=== PATIENT | male | born 1970 ===

== ENCOUNTER 2024-07-23 13:10 | Emergency (ER) | payer MEDICAID, SELFPAY ==
--- NOTE | ~2024-07-23 | XR_ITS ---
EXAMINATION: XR CHEST CLINICAL INFORMATION: cough, wheeze COMPARISON: None available. TECHNIQUE: 2 views of the chest were obtained. FINDINGS: The cardiac, hilar, and mediastinal contours are normal. The lungs are mildly hyperaerated, however clear bilaterally. There is no pneumothorax or pleural effusion. There is no focal osseous or soft tissue abnormality. XR/XR chest 2V IMPRESSION: No active pulmonary disease. Electronically signed by: Ricky Diaz MD 07/23/2024 02:19 PM EDT
[2024-07-23 13:16] VITALS: BP 123/72; PULSE 98; O2SAT 98
[2024-07-23 13:21] VITALS: BP 140/80; PULSE 89; RESP 16; TEMP 36.8; O2SAT 97; BMI 27.3
--- NOTE | 2024-07-23 13:25 | ECG_ITS ---
Test Reason : WEAKNESS Blood Pressure : */* mmHG Vent. Rate : 80 BPM Atrial Rate : 80 BPM P-R Int : 126 ms QRS Dur : 88 ms QT Int : 408 ms P-R-T Axes : 50 -1 17 degrees QTcB Int : 470 ms Normal sinus rhythm Septal infarct , age undetermined Abnormal ECG No previous ECGs available Referred By: Santi Chahal Electronically Signed By: HALLIE MOHAN MD
--- NOTE | 2024-07-23 13:29 | ED.GENADULT ---
HPI - General Adult General Chief complaint: Syncope Stated complaint: 3x near syncope, 3rd day self alc detox Time Seen by Provider: 07/23/24 13:17 History of Present Illness ED Provider: Santi Chahal MD HPI narrative: 54-year-old male reports ?multiple passing out episodes ?.? Attempting to stop drinking and cutting back on cigarettes ?.Patient reports shortness of breath upon walking today. No chest pain No cough or fever. No abdominal pain denies any injuries Related Data Home Medications ?Medication ?Instructions ?Recorded ?Confirmed albuterol sulfate 2.5 mg/3 mL mg inhalation Q6H PRN wheezing 05/15/24 (0.083 %) solution for nebulization azelastine 137 mcg (0.1 %) nasal 1 spray intranasal BID PRN 05/15/24 spray allergies fluticasone 250 mcg-salmeterol 50 1 ea inhalation BID 05/15/24 mcg/dose blistr powdr for inhalation (Advair Diskus) lisinopril 10 mg tablet 10 mg PO DAILY 05/15/24 montelukast 10 mg tablet 10 mg PO QPM 05/15/24 omeprazole 20 mg capsule,delayed 20 mg PO DAILY 05/15/24 release rosuvastatin 20 mg tablet 20 mg PO DAILY 05/15/24 tiotropium bromide 2.5 2 puff inhalation DAILY 05/15/24 mcg/actuation mist for inhalation (Spiriva Respimat) Previous Rx's ?Medication ?Instructions ?Recorded albuterol sulfate 90 mcg/actuation 2 puff inhalation Q6H PRN 07/23/24 aerosol inhaler shortness of breath or wheezing #8.5 grams prednisone 20 mg tablet 60 mg (3 x 20 mg) PO DAILY 4 days 07/23/24 #12 tabs Allergies Allergy/AdvReac Type Severity Reaction Status Date / Time Opioids - Morphine Analogues AdvReac Intermediate Abdominal Verified 07/23/24 13:25 Pain metformin AdvReac Mild Rash Verified 07/23/24 13:25 PMFSH Past Medical History Medical History (Updated 07/24/24 @ 00:00 by Viola Jackson) Night terrors, adult Tobacco dependence Alcohol dependence Hyperlipidemia HTN (hypertension) COPD (chronic obstructive pulmonary disease) Type 2 diabetes mellitus Surgical History (Updated 05/15/24 @ 16:06 [facility] History of [facility] surgery Hernia Family History Family History (Updated 05/15/24 @ 16:03 by RAMON Steinberg) Maternal Grandfather Lung cancer Paternal Grandfather CHF (congestive heart failure) Social History Social History (Updated 05/15/24 @ 16:01 by RAMON Steinberg) Alcohol intake: current Alcohol intake frequency: 3 or more drinks per day Alcohol type: beer Comment: Heavy alcohol Patient Tobacco Use Status: Current everyday Tobacco user Physical Exam ED Vital Signs: Vital Signs - 24 hr 07/23/24 13:21 07/23/24 14:00 07/23/24 14:43 Temperature 98.3 F 98.4 F Pulse Rate 89 76 65 Respiratory Rate 16 26 H 18 Blood Pressure 140/80 H 139/79 Pulse Oximetry 97 95 Oxygen Delivery Method Room Air Room Air BMI result Body Mass Index 27.3 Const Other: EXAM: Gen: Alert, awake, well appearing, well hydrated. Head: Atraumatic Eyes: Anicteric, Normal conjunctiva. ENT: Moist mucosa, no pallor. ? Neck: Supple. Respiratory: Scant expiratory only wheeze. No respiratory distress. Speaking full sentences. Cardiovascular: Regular rate and rhythm. No murmurs or rub. Well perfused periphery, warm extremities. No edema. ? Abdominal: No FOCAL TENDERNESS. Soft, no objective distension. No palpable masses or obvious organomegaly. ?No guarding, no rebound tenderness or other peritoneal findings. : No flank tenderness. Neuro: Alert. Gross movement of all extremities intact. ? Vital signs: See flowsheet Medications Administered Discontinued Medications Generic Name Dose Route Start Last Admin Trade Name Freq PRN Reason Stop Dose Admin Albuterol/Ipratropium 3 ml 07/23/24 13:47 07/23/24 14:42 Albuterol/Iprat 2.5/0.5mg 3 Ml Ampul.Neb INHALE 07/23/24 13:48 3 ml ONCE ONE Administration Sodium Chloride 1,000 mls @ 999 mls/hr 07/23/24 15:00 07/23/24 16:09 Ns IV 07/23/24 16:00 Infused .Q1H1M ANUJA Infusion Prednisone 60 mg 07/23/24 13:47 07/23/24 14:16 Prednisone 20 Mg Tablet PO 07/23/24 13:48 60 mg ONCE ONE Administration Medical Decision Making Medical Decision Making MDM Narrative: 54-year-old male smoking history with shortness of breath on exertion. No distress here no hypoxia. He does have wheezing likely has underlying COPD with exacerbation today. Chest x-ray clear of infiltrates or effusions. No pneumothorax. Further history , these episodes are described more as lightheaded/dyspnea on exertion without true syncopal/near syncopal. doubt ACS/PE/Dysrhythmia though they were considered. Well hydrated euvolemic. Reassuring lab work. Presumed COPD exacerbation Differential Diagnosis Differential Diagnoses: The differential diagnosis associated with the presentation includes COPD or reactive airway disease/asthma with exacerbation. Pneumonia, pneumothorax Lab Data [facility] Lab Attestation statement: I reviewed the patient's lab results. 07/23/24 14:34 07/23/24 14:34 Labs: Lab Results 07/23/24 Range/Units 14:34 WBC 5.7 (4.8-10.8) X10*3/uL RBC 3.98 L (4.60-5.80) X10*6/uL Hgb 12.7 L (14.0-18.0) g/dl Hct 37.2 L (42.0-52.0) % MCV 93.5 (80.0-98.0) fL MCH 31.9 (27.0-33.0) pg MCHC 34.1 (31.0-36.0) g/dl RDW 12.5 (11.0-16.0) % Plt Count 150 L (160-400) X10*3/uL MPV 9.8 (9.4-12.4) fL Immature Gran % (Auto) 0.4 (0.0-0.4) % Neut % (Auto) 71.0 (45-73) % Lymph % (Auto) 13.3 L (20-40) % Shackelford % (Auto) 13.6 H (2-11) % Eos % (Auto) 1.2 (0-4) % Baso % (Auto) 0.5 (0-2) % Lymph # (Auto) 0.8 L (1.2-4.9) X10*3/uL [place]elford # (Auto) 0.8 (0.1-1.2) X10*3/uL Eos # (Auto) 0.1 (0.0-0.4) X10*3/uL Baso # (Auto) 0.0 (0.0-0.2) X10*3/uL Abs Immat Gran (auto) 0.02 (0.00-0.03) X10*3/uL Absolute Neuts (auto) 4.0 (2.0-8.3) x10*3/uL Absolute Nucleated RBC 0.000 (0.0-0.012) X10*3/uL Nucleated RBC % (auto) 0.0 (0.0-0.2) /100WBC Sodium 133 L (135-145) mmol/L Potassium 4.7 (3.3-5.1) mmol/L Chloride 95 L (96-108) mmol/L Carbon Dioxide 31 H (22-29) mmol/L Anion Gap 12 (12-20) BUN 17 H (9-16) mg/dL Creatinine 1.41 H (0.5-1.4) mg/dL Estim Creat Clear Calc 59.8 Estimated GFR 52 Random Glucose 157 H (60-115) mg/dL Calcium 8.6 (8.4-10.2) mg/dL Independent Interpretation I performed an independent interpretation of an: EKG (Sinus rhythm rate 80 QTC 470 no acute ischemic changes. Normal intervals.) Radiology Impression Discussion of test interpretation with radiology: I have reviewed the radiologist's reading. Discharge Plan Discharge Clinical Impression: Wheeze Patient Disposition: Home, Self-Care Instructions: Wheezing (ED) Additional Instructions: DISCHARGE DIAGNOSES: Wheezing likely exacerbation of underlying lung disease possibly COPD from smoking HISTORY OF PRESENTATION: ?Difficulty breathing with exerting herself EMERGENCY DEPARTMENT COURSE,TESTS, TREATMENTS: While in the ED today you had steroid medication by mouth an x-ray and an inhaled albuterol treatment with ipratropium lung treatments for wheezing. X-ray excluded pneumonia DISCHARGE MEDICATIONS: ?[We have made no changes to your regular medication regimen] we have prescribed you steroid and a rescue inhaler FOLLOW-UP: ?Call your primary or general physician soon as possible to discuss your symptoms, your ED visit and to discuss follow up plans Call your primary doctor for follow up INSTRUCTIONS ?& RETURN PRECAUTIONS: If any symptoms change first call your primary physician, if it is after-hours your primary doctors office should have a provider insurance verification specialist you can speak with. If the symptoms are severe or very concerning to you then call 911 or return to the ED. Return for severe worsening difficulty breathing Santi Chahal MD Emergency Physician [facility] Prescriptions: New prednisone 20 mg tablet 60 mg PO DAILY 4 Days Qty: 12 0RF albuterol sulfate 90 mcg/actuation HFA aerosol inhaler 2 puff inhalation Q6H PRN (Reason: shortness of breath or wheezing) Qty: 8.5 0RF No Action fluticasone propion-salmeterol [Advair Diskus] 250-50 mcg/dose blister with device 1 ea inhalation BID Spiriva Respimat 2.5 mcg/actuation mist 2 puff inhalation DAILY montelukast 10 mg tablet 10 mg PO QPM azelastine 137 mcg (0.1 %) spray,non-aerosol 1 spray intranasal BID PRN (Reason: allergies) albuterol sulfate 2.5 mg /3 mL (0.083 %) solution for nebulization inhalation Q6H PRN (Reason: wheezing) rosuvastatin 20 mg tablet 20 mg PO DAILY omeprazole 20 mg capsule,delayed release(DR/EC) 20 mg PO DAILY lisinopril 10 mg tablet 10 mg PO DAILY Interventions: ED Discharge Assessment Last Done: 07/23/24 17:01 Discharge Date/Time: 07/23/24 17:01 Print Language: Serbian
[2024-07-23 14:00] VITALS: BP 139/79; PULSE 76; RESP 26; TEMP 36.9; O2SAT 95
[2024-07-23] MEDS: predniSONE 20 MG TABLET 60 MG PO (14:16)
[2024-07-23 14:37] LABS: MANUAL DIFF FLAG NO
[2024-07-23 14:40] LABS: Basophils Percent Auto 0.5 % (0-2); Eosinophils Absolute Auto 0.1 X10*3/uL (0.0-0.4); Eosinophils Percent Auto 1.2 % (0-4); Hematocrit 37.2 % (42.0-52.0); Hemoglobin 12.7 g/dl (14.0-18.0); Imm Gran Abs Auto 0.02 X10*3/uL (0.00-0.03); Imm Gran Pct Auto 0.4 % (0.0-0.4); Lymphocytes Absolute Auto 0.8 X10*3/uL (1.2-4.9); Lymphocytes Percent Auto 13.3 % (20-40); Mean Corpuscular HGB Conc 34.1 g/dl (31.0-36.0); Mean Corpuscular Hemoglobin 31.9 pg (27.0-33.0); Mean Corpuscular Volume 93.5 fL (80.0-98.0); Mean Platelet Volume 9.8 fL (9.4-12.4); Monocytes Absolute Auto 0.8 X10*3/uL (0.1-1.2); Monocytes Percent Auto 13.6 % (2-11); Platelet Count 150 X10*3/uL (160-400); Red Blood Count 3.98 X10*6/uL (4.60-5.80); Red Cell Distribution Width 12.5 % (11.0-16.0); White Blood Count 5.7 X10*3/uL (4.8-10.8)
--- OUTSIDE RECORDS SUMMARY | 2024-07-23 14:41 | XMS_ITS | Clinical Summary ---
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 2 Active gabapentin (Neurontin) 300 MG capsule Take 1 capsule (300 mg) by mouth 2 times daily. 60 capsule 1 3 Active sertraline (Zoloft) 100 MG tablet TAKE 1 1/2 tablets BY MOUTH ONCE DAILY 30 tablet 1 3 Active lisinopril 10 MG tablet Take 1 tablet (10 mg) by mouth in the morning. 30 tablet 1 3 Active simvastatin (Zocor) 40 MG tablet Take 1 tablet (40 mg) by mouth in the evening. 30 tablet 1 3 Active cetirizine (ZyrTEC) 10 MG tablet Take 1 tablet (10 mg) by mouth in the morning. 30 tablet 1 3 Active ProAir HFA 108 (90 Base) MCG/ACT inhaler Inhale 2 puffs every 4 (four) hours if needed for shortness of breath. 18 g 1 3 Active dulaglutide (Trulicity) 0.75 MG/0.5ML solution pen-injector Inject 0.75 mg under the skin 1 (one) time per week. 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 Was on Metformin and humalog SSI. Did not tolerate metformin reports GI side effects. Reports he has noticed poor healing, concentrated urine, fatigue, weight loss since being off meds. He has not been checking sugars. Needs new device. Has been less consistent with diet and activity lately so sugars have been worse. Stressed importance of low sugar diet and exercise. Last A1c was 8.5% on 02/05/2020. A1C today 10/12/22 8.4% Last umicro 11/14/2019 elevated at 1872.8. refilled LUIGI today Foot exam: 10/12/22 Discussed tx options. Pt has not been very compliant with short acting insulin and checking BS multiple times per day. Thinks weekly GLP1 would be more manageable for pt. Will trial trulicity, side effects discussed. Smoking 10/12/2022 Overview (10/12/2022): Smokes 1ppd. Not interested in quitting. Reviewed risk and encouraged to quit Tremor 10/12/2022 Oral leukoplakia 10/12/2022 Microalbuminuria 10/12/2022 Overview (10/12/2022): Will refill LUIGI Macrocytosis without anemia 10/12/2022 Hyperlipidemia 10/12/2022 Essential hypertension 10/12/2022 Depression with anxiety 10/12/2022 Elevated liver enzymes 10/12/2022 COPD exacerbation 10/12/2022 Assessment & Plan (01/09/2023 12:02 PM EST): Worsening cough and sob with hx of COPD. Sx consistent with exacerbation. COVID and flu negative. O2 sat low and inspiratory wheeze on exam. Will rx prednisone burst and z pack. Will also get CXR for eval since sx have been ongoing for 2 months. Continue albuterol prn. Recommended he continue to monitor sugars, controlled this morning so no major contraindication to short course of steroids. Advised him to make follow up with provider in [facility] and establish care. May need additional inhalers for chronic COPD management. Can reassess after exacerbation. Alcoholism 10/12/2022 Immunizations Immunization Administration Dates Next Due Influenza, IIV3, injectable 11/17/2019, 8 Pneumococcal Polysaccharide PPSV23 06/21/2009 TD (adult), 2 Lf tetanus tox oid, preservative free, adsorbed 06/21/2009 Family History Medical History Relation Name Comments heart issues Father heart issues Mother's Brother Relation Name Status Comments Father Mother's Brother Social History Tobacco Use Types Packs/Day Years Used Date Smoking Tobacco: Every Day Cigarettes Tobacco Cessation:Ready to Q uit: Not Asked; Counseling Given: Not Answered Sex and Gender Information Value Date Recorded Sex Assigned at Male 04/05/2022 12:43 PM EST Legal Sex Male 8:35 PM EDT Gender Identity Male 04/05/2022 12:43 PM EST Sexual Orientation Don't know 04/05/2022 12 :43 PM EST Last Filed Vital Signs Vital Sign Reading Time Taken Comments Blood Pressure 146/71 01/09/2023 11:35 AM EST Pulse 102 01/09/2023 11:35 AM EST Temperature 36.9 ??C (98.4 ??F) 01/09/2023 11:[address] Respiratory Rate 16 01/09/2023 11:35 AM EST Oxygen Saturation 93% 01/09/2023 11:35 AM EST Inhaled Oxygen Concentration - - Weight 80 kg (176 lb 6.4 oz) 10/12/2022 9:33 AM EDT Height 180.3 cm (5' 11 ) 10/12/2022 9:33 AM EDT Body Mass Index 24.6 10/12/2022 9:33 AM EDT Plan of Treatment Health Maintenance Due Date Last Done Comments CT Colonography 1970 Colonoscopy 1970 Colorectal Cancer Screening 1970 Depression Screening 1970 FIT DNA/Cologuard 1970 FIT 1970 FOBT 1970 HIV Screening 1970 SDOH Screening 1970 Sigmoidoscopy 1970 Disability Screening 1970 Eye Exam 1980 Alcohol/Substance Use Screening 1982 Hepatitis C Screening 1988 Hepatitis B Vaccines (1 of 3 - 19+ 3-dose series) 1989 DTaP/Tdap/Td Vaccines (1 - Tdap) 06/22/2009 06/21/2009 Pneumococcal Vaccine: 50+ Years (2 of 2 - PCV) 06/21/2010 06/21/2009 Zoster Vaccines (1 of 2) 2020 Diabetes: Hemoglobin A1C 08/26/2021 022, 11/14/2019 Diabetes: Urine Protein Screening 05/27/2022 05/27/2021, 11/14/2019 Lipid Panel 05/27/2022 05/27/2021, 11/14/2019 Diabetes: Foot Exam 10/13/2023 10/12/2022, 10/12/2022, 10/12/2022 COVID-19 Vaccine (1 - 2023-2 5 season) 2023 Influenza Vaccine (#1) 2023 0, 01/03/2018 Tobacco Screening 01/10/2024 01/09/2023 RSV Patients and Patients Aged 60 years or older (1 - 1-dose 75+ series) 2045 HIB Vaccines Aged Out No longer eligi ble based on patient's age to complete this topic HPV Vaccines Aged Out No longer eligi ble based on patient's age to complete this topic Hepatitis A Vaccines Aged Out No long er eligible based on patient's age to complete this topic IPV Vaccines Aged Out No longer eligi ble based on patient's age to complete this topic Meningococcal B Vaccine Aged Out No l onger eligible based on patient's age to complete this topic Meningococcal Vaccine Aged Out No sudhakar kailash eligible based on patient's age to complete this topic RSV under 20 months Aged Out No longe r eligible based on patient's age to complete this topic Rotavirus Vaccines Aged Out No longer eligible based on patient's age to complete this topic Procedures Procedure Name Priority Date/Time Associated Diagnosis Comments ALBUMIN, RANDOM URINE W/CREATININE Routine 05/27/2021 12:38 PM EDT HEMOGLOBIN A1C Routine 05/27/2021 12:38 PM EDT LIPID PANEL, STANDARD Routine 05/27/2021 12:38 PM EDT from Last 3 Months or Most Recently Relevant to Health Maintenance Results * (ABNORMAL) -Microalbumin, Urine (05/27/2021 12:38 PM EDT) Microalbumin Urine 57.2(H) (<20) MG/L [facility] Comment: The urine microalbumin test is designed to monitor renal function. When screening for Bence Verma proteinuria, urine electrophoresis is recommended. Microalb/Creat Ratio 102.1(H) (0-20) MG/GM [facility] Creatinine, Urine 56.0 MG/DL [facility] 05/27/2021 12:3 8 PM EDT [facility] LAB URINE ORDERABLES Coretta miller Result [facility] [address] * (ABNORMAL) -Hemoglobin A1C, Whole Blood (05/27/2021 12:38 PM EDT) Hemoglobin A1c 8.7(H) (4.0-5.6) % [facility] Comment: MONITORING: In known diabetic patients, hemoglobin A1c targets should be discussed with health care provider. DIAGNOSTIC USE: ??The [place] Diabetes Association (ADA) and the World Health Organization (WHO) recommend the use of HbA1c to diagnose diabetes using a threshold of 6.5%. Patients who have an HbA1c between 5.7% and 6.4% are considered at increased risk for developing diabetes in the future. CAUTION: Falsely low HbA1c results may be observed in patients with hemolytic anemia, homozygous forms of abnormal hemoglobin (e.g. SS, CC, SC), , recent blood loss or hemoglobin F greater than 7%. Fructosamine may be used as an alternate test in these cases. REFERENCE: ADA: Standards of Medical Care in Diabetes 2020, The Journal of Clinical and Applied Research and Education Volume 43, Supplement 1 05/27/2021 12:3 8 PM EDT [facility] LAB BLOOD ORDERABLES Coretta l Result [facility] [address] * (ABNORMAL) -Lipid Panel (05/27/2021 12:38 PM EDT) LDL CHOLESTEROL, CALCULATED 85 (0-130) MG/DL [facility] CHOLESTEROL, TOTAL 175 (<200) MG/DL [facility] HDL CHOL 50 (>39) MG/DL [facility] NON HDL CHOLESTEROL (CALC) 125 (<160) MG/DL [facility] TRIGLYCERIDE 199(H) (<150) MG/DL [facility] 05/27/2021 12:3 8 PM EDT [facility]am[facility]ilmer Romano [facility] LAB BLOOD ORDERABLES Coretta l Result Performing Organization Address City/[facility] Co de Phone Number [facility] [address] from Last 3 Months or Most Recently Relevant to Health Maintenance Insurance [facility] C3
[2024-07-23] MEDS: Albuterol/Iprat 2.5/0.5MG 3 ML AMPUL.NEB INHALE (14:42)
[2024-07-23 14:43] VITALS: PULSE 65; RESP 18; O2SAT 96
[2024-07-23 14:52] LABS: Anion Gap 12 (12-20); Blood Urea Nitrogen 17 mg/dL (9-16); Calcium 8.6 mg/dL (8.4-10.2); Carbon Dioxide 31 mmol/L (22-29); Chloride 95 mmol/L (96-108); Creatinine Clr Calc Pharmacy 59.8; Estimated Glomerular Filt Rate 52; Glucose Random 157 mg/dL (60-115); Potassium 4.7 mmol/L (3.3-5.1); Sodium 133 mmol/L (135-145)
[2024-07-23] MEDS: 0.9 % Sodium Chloride 1,000 ML 999 ML IV (15:03)
[2024-07-23 16:45] VITALS: BP 176/99; PULSE 98; RESP 16; TEMP 37.1; O2SAT 98
[2024-07-23 17:01] VITALS: BP 176/99; PULSE 98; RESP 16; TEMP 37.1; O2SAT 98
== END 2024-07-23 17:01 | disposition home or self-care (01) ==
PROVIDERS: Emergency Provider Emergency Medicine
DX: R06.2 Wheezing (principal); R06.02 Shortness of breath; E11.9 Type 2 diabetes mellitus without complications; I10 Essential (primary) hypertension; E78.5 Hyperlipidemia, unspecified; J44.9 Chronic obstructive pulmonary disease, unspecified; F17.210 Nicotine dependence, cigarettes, uncomplicated; Z79.02 Long term (current) use of antithrombotics/antiplatelets; Z79.899 Other long term (current) drug therapy
CPT/HCPCS: 36415; 71046; 80048; 85025; 93005; 94640; 96360; 99284; 99285

== ENCOUNTER → 2024-07-23 13:25 | Outpatient (BNV) | payer MEDICAID, SELFPAY | PROVIDERS: Emergency Provider Emergency Medicine; Visit Provider Internal Medicine Cardiovascular Disease | DX: R94.31 Abnormal electrocardiogram [ECG] [EKG] (principal); R53.1 Weakness | CPT/HCPCS: 93010 ==

== ENCOUNTER → 2024-07-23 13:47 | Outpatient (BNV) | payer MEDICAID, SELFPAY | PROVIDERS: Emergency Provider Emergency Medicine; Visit Provider Radiology Diagnostic Radiology | DX: R05.9 Cough, unspecified (principal) | CPT/HCPCS: 71046 ==